=== PATIENT | male | born 1935 | race Caucasian/White ===

== ENCOUNTER → 2016-09-01 | Outpatient (CLI) | payer MEDICARE, OTHER ==
[~2016-09-01] MED LIST: ANTI1CAP PO; ASPI-496 PO; CELE200C PO; CITA20TA5 PO; CITA40TA12 PO; FERR325T20 PO; KRIL500C PO; LORA10CA PO; LORA5TAB4 PO; MULT-326 PO; NAPR500T PO; RABE20TA5 PO; SIMV40TA3 PO; TAMS0.4C2 PO; TEST1.25 TD; [UNRECOGNIZED DRUG - OTHER] PO
== END | disposition home or self-care (01) ==
LOC: CFH 12:33
PROVIDERS: ATTEND Internal Medicine Cardiovascular Disease
DX: I08.3 Combined rheumatic disorders of mitral, aortic and tricuspid valves (principal); J44.9 Chronic obstructive pulmonary disease, unspecified; E78.5 Hyperlipidemia, unspecified; Z95.5 Presence of coronary angioplasty implant and graft; Z99.81 Dependence on supplemental oxygen; Z85.46 Personal history of malignant neoplasm of prostate; Z87.891 Personal history of nicotine dependence
CPT/HCPCS: 93306

== ENCOUNTER 2017-01-24 14:24 | Emergency (ER) | payer MEDICARE, OTHER ==
[~2017-01-24] VITALS: Ht 175.3 cm; Wt 69.4 kg
[2017-01-24] MEDS ORDERED: MAALOX/HYOSCYAMINE/LIDOCAINE 45 ML BTL ONE (15:50)
[2017-01-24 15:53] LABS: HEMATOCRIT 39.7 % (39.2-51.8)
[2017-01-24] MEDS ORDERED: MAALOX/HYOSCYAMINE/LIDOCAINE 45 ML BTL PO ONE (16:00)
[2017-01-24] MEDS ORDERED: SODIUM CHLORIDE FLUSH 10ML SYR IVF ONE (16:00)
[2017-01-24 16:05] LABS: BLOOD UREA NITROGEN 18 mg/dL (7-18)
[2017-01-24 17:38] VITALS: BP 111/82
== END 2017-01-24 18:08 | disposition home or self-care (01) ==
LOC: ED 15:51
DX: M51.16 Intervertebral disc disorders with radiculopathy, lumbar region (principal); M43.06 Spondylolysis, lumbar region; M48.54XA Collapsed vertebra, not elsewhere classified, thoracic region, initial encounter for fracture; E78.5 Hyperlipidemia, unspecified; I10 Essential (primary) hypertension; I25.2 Old myocardial infarction; J44.9 Chronic obstructive pulmonary disease, unspecified; I25.10 Atherosclerotic heart disease of native coronary artery without angina pectoris; N40.0 Benign prostatic hyperplasia without lower urinary tract symptoms; K21.9 Gastro-esophageal reflux disease without esophagitis; Z87.891 Personal history of nicotine dependence; Z95.5 Presence of coronary angioplasty implant and graft
CPT/HCPCS: 36415; 72110; 80048; 82040; 85025; 93005; 99285

== ENCOUNTER → 2017-06-11 | Outpatient (CLI) | payer MEDICARE, OTHER ==
[~2017-06-11] MED LIST changes: +FERR325T18 PO; -FERR325T20 PO; +NAPR-856 PO; -NAPR500T PO; +RABE20TA18 PO; -RABE20TA5 PO
== END ==
LOC: RAD 09:13
PROVIDERS: ATTEND Surgery
DX: K21.9 Gastro-esophageal reflux disease without esophagitis (principal)
CPT/HCPCS: 74220

== ENCOUNTER 2017-07-01 10:48 | Inpatient (IN) | payer MEDICARE, OTHER ==
[~2017-07-01] VITALS: Ht 175.3 cm; Wt 76.4 kg
[~2017-07-01 10:48] MED LIST changes: +BUPIVACAINE/PF 0.5% ONE
[2017-07-01] MEDS ORDERED: LACTATED RINGERS 1,000 ML IV SCH (11:20)
[2017-07-01] MEDS ORDERED: CITA20TA5 PO (11:25)
[2017-07-01] MEDS ORDERED: OMEG-14 PO (11:25)
[2017-07-01] MEDS ORDERED: FERR325T18 PO (11:25)
[2017-07-01] MEDS ORDERED: RABE20TA26 PO (11:25)
[2017-07-01] MEDS ORDERED: TAMS0.4C2 PO (11:25)
[2017-07-01] MEDS ORDERED: ASPI-496 PO (11:25)
[2017-07-01] MEDS ORDERED: ANTI1CAP PO (11:25)
[2017-07-01] MEDS ORDERED: SIMV40TA3 PO (11:25)
[2017-07-01] MEDS ORDERED: MULT-6 PO (11:25)
[2017-07-01] MEDS ORDERED: GLUC500T11 PO (11:25)
[2017-07-01] MEDS ORDERED: CELE200C PO (11:25)
[2017-07-01 11:26] VITALS: BP 137/79
[2017-07-01] MEDS ORDERED: MEPERIDINE/PF 25MG/0.5ML IVPush PRN (11:30)
[2017-07-01] MEDS ORDERED: morphine SULFATE 10 MG/ML, 1ML IV PRN (11:30)
[2017-07-01] MEDS ORDERED: FENTANYL PF 100 MCG/2ML IV PRN (11:30)
[2017-07-01] MEDS ORDERED: EPHEDRINE 50 MG/ML, 1ML IVPush PRN (11:30)
[2017-07-01] MEDS ORDERED: ONDANSETRON 2MG/ML, 2ML IVPush PRN (11:30)
[2017-07-01] MEDS ORDERED: HYDROcodone/APAP 7.5-325MG/15ML UDC PO PRN (11:30)
[2017-07-01] MEDS ORDERED: METOCLOPRAMIDE 5 MG/ML, 2ML IV PRN (11:30)
[2017-07-01] MEDS ORDERED: KETOROLAC 30 MG/1 ML IV PRN (11:30)
[2017-07-01] MEDS ORDERED: OXYcodone 5 MG/5 ML ORAL.SOL UDC PO PRN ×2 (11:30→18:30)
[2017-07-01] MEDS ORDERED: ALBUTEROL SULFATE 2.5 MG/3 ML NPPB PRN (11:30)
[2017-07-01] MEDS ORDERED: ACETAMINOPHEN 325 MG TABLET PO PRN ×2 (11:30→18:30)
[2017-07-01] MEDS ORDERED: HYDROmorphone 1 MG/ML, 1ML IV PRN ×2 (11:30→18:30)
[2017-07-01] MEDS ORDERED: MIDAZOLAM 1 MG/ML, 2ML IV PRN (11:30)
[2017-07-01] MEDS ORDERED: LABETALOL 5MG/ML, 20ML IV PRN (11:30)
[2017-07-01] MEDS ORDERED: DEXAMETHASONE 4 MG/ML, 1ML ONE ×2 (11:47→12:06)
[2017-07-01] MEDS ORDERED: FENTANYL PF 250 MCG/5ML ONE (11:47)
[2017-07-01] MEDS ORDERED: PROPOFOL 10 MG/ML, 20ML ONE (11:47)
[2017-07-01] MEDS ORDERED: LIDOCAINE-MPF 2% ,5ML ONE (11:47)
[2017-07-01] MEDS ORDERED: MIDAZOLAM 1 MG/ML, 2ML ONE (11:47)
[2017-07-01] MEDS ORDERED: GLYCOPYRROLATE 0.2MG/1ML, 5ML ONE (11:47)
[2017-07-01] MEDS ORDERED: ROCURONIUM 10 MG/ML,10ML ONE (11:47)
[2017-07-01] MEDS ORDERED: LABETALOL 5MG/ML, 20ML ONE ×2 (11:48→12:06)
[2017-07-01] MEDS ORDERED: ONDANSETRON 2MG/ML, 2ML ONE ×2 (12:06→16:20)
[2017-07-01] MEDS ORDERED: CEFAZOLIN 1,000 MG ONE (12:06)
[2017-07-01] MEDS ORDERED: BUPIVACAINE/PF-EPI 0.5% 1:200K IM ONE (12:54)
[2017-07-01] MEDS ORDERED: METOCLOPRAMIDE 5 MG/ML, 2ML ONE (16:38)
[2017-07-01] MEDS ORDERED: FENTANYL PF 100 MCG/2ML ONE (16:38)
[2017-07-01 18:00] VITALS: BP 136/86
[2017-07-01 18:29] VITALS: BP 134/88
[2017-07-01] MEDS ORDERED: SODIUM CHLORIDE 0.9% 1,000 ML IV SCH (18:30)
[2017-07-01] MEDS ORDERED: HYDROmorphone 2 MG/ML, 1ML ONE ×2 (19:48→23:57)
[2017-07-01] MEDS: HYDROmorphone 1 MG/ML, 1ML IV PRN ×2 (19:55→23:59)
[2017-07-01] MEDS: SODIUM CHLORIDE 0.9% 1,000 ML IV SCH (20:00)
[2017-07-01 20:15] VITALS: BP 133/79
[2017-07-02] VITALS: BP 101/69
[2017-07-02 04:36] VITALS: BP 109/84
[2017-07-02] MEDS ORDERED: HYDROmorphone 2 MG/ML, 1ML ONE (04:43)
[2017-07-02] MEDS: HYDROmorphone 1 MG/ML, 1ML IV PRN (04:46)
[2017-07-02 05:11] LABS: BASOPHILS % (AUTO) 0 % (0-1); EOSINOPHILS % (AUTO) 0 % (1-7); LYMPHOCYTES % (AUTO) 7 % (22-44); MD NO; MEAN CORPUSCULAR HEMOGLOBIN 30.1 pg (27.5-34.5); MEAN CORPUSCULAR HGB CONC 32.9 g/dL (33.2-36.2); MEAN CORPUSCULAR VOLUME 91.4 fL (81-97); MONOCYTES # (AUTO) 0.64 x10^3/uL (0.2-0.8); MONOCYTES % (AUTO) 5 % (2-9); NEUTROPHILS # (AUTO) 11.37 x10^3/uL (1.8-6.8); NEUTROPHILS % (AUTO) 88 % (42-75); PLATELET COUNT 238 x10^3/uL (130-400); RED BLOOD COUNT 3.82 x10^6/uL (4.38-5.82); RED CELL DISTRIBUTION WIDTH 15.8 % (9.4-14.8)
[2017-07-02] MEDS: TAMSULOSIN 0.4 MG CAP.ER.24H PO SCH ×2 (07:28→20:49)
[2017-07-02 07:38] VITALS: BP 104/66
[2017-07-02] MEDS ORDERED: TAMSULOSIN 0.4 MG CAP.ER.24H PO SCH (09:00)
[2017-07-02] MEDS: SODIUM CHLORIDE 0.9% 1,000 ML IV SCH ×2 (09:07→20:06)
[2017-07-02] MEDS ORDERED: OMNIPAQUE 350 MG/ML, 150 ML BOTTLE ONE (13:04)
[2017-07-02 13:38] VITALS: BP 120/80
[2017-07-02 18:31] VITALS: BP 102/75
[2017-07-02 18:35] LABS: BASOPHILS % (AUTO) 0 % (0-1); EOSINOPHILS % (AUTO) 0 % (1-7); LYMPHOCYTES # (AUTO) 0.77 x10^3/uL (1-3.4); LYMPHOCYTES % (AUTO) 7 % (22-44); MD NO; MEAN CORPUSCULAR HEMOGLOBIN 30.4 pg (27.5-34.5); MEAN CORPUSCULAR HGB CONC 33.2 g/dL (33.2-36.2); MEAN CORPUSCULAR VOLUME 91.5 fL (81-97); MONOCYTES # (AUTO) 0.68 x10^3/uL (0.2-0.8); MONOCYTES % (AUTO) 6 % (2-9); NEUTROPHILS # (AUTO) 9.94 x10^3/uL (1.8-6.8); NEUTROPHILS % (AUTO) 87 % (42-75); PLATELET COUNT 243 x10^3/uL (130-400); RED BLOOD COUNT 3.56 x10^6/uL (4.38-5.82); RED CELL DISTRIBUTION WIDTH 16.1 % (9.4-14.8)
[2017-07-02 18:46] LABS: ALANINE AMINOTRANSFERASE 78 U/L (12-78); ALBUMIN 2.7 g/dL (3.4-5.0); ANION GAP 9 mmol/L (5-15); CALCIUM 8.1 mg/dL (8.5-10.1); CHLORIDE 108 mmol/L (98-107); CREATININE 1.73 mg/dL (0.7-1.3)
[2017-07-02 18:49] LABS: ALKALINE PHOSPHATASE 70 U/L (45-117); BILIRUBIN,TOTAL 0.5 mg/dL (0.2-1.0); TOTAL PROTEIN 6.8 g/dL (6.4-8.2)
[2017-07-02] MEDS: ACETAMINOPHEN 325 MG TABLET PO PRN (20:49)
[2017-07-02] MEDS: OXYcodone 5 MG/5 ML ORAL.SOL UDC PO PRN (22:39)
[2017-07-03 00:01] VITALS: BP 137/89
[2017-07-03] MEDS: SODIUM CHLORIDE 0.9% 1,000 ML IV SCH ×2 (05:34→17:41)
[2017-07-03 08:55] VITALS: BP 124/84
[2017-07-03] MEDS ORDERED: SODIUM CHLORIDE 0.9% 1,000ML IVBOLUS ONE (09:00)
[2017-07-03] MEDS ORDERED: ONDANSETRON 2MG/ML, 2ML ONE (09:11)
[2017-07-03] MEDS ORDERED: ONDANSETRON ODT 4 MG ONE (09:14)
[2017-07-03] MEDS: ONDANSETRON ODT 4 MG PO PRN ×2 (09:15→20:37)
[2017-07-03] MEDS: FAMOTIDINE 20 MG/2 ML IVPush SCH (10:01)
[2017-07-03] MEDS: OXYcodone 5 MG/5 ML ORAL.SOL UDC PO PRN ×2 (10:01→17:43)
[2017-07-03] MEDS ORDERED: HYDROmorphone 2 MG/ML, 1ML ONE (10:36)
[2017-07-03] MEDS: HYDROmorphone 1 MG/ML, 1ML IV PRN (10:38)
[2017-07-03 13:55] VITALS: BP 140/87
[2017-07-03 19:02] VITALS: BP 106/69
[2017-07-03] MEDS: TAMSULOSIN 0.4 MG CAP.ER.24H PO SCH (20:37)
[2017-07-04 00:08] VITALS: BP 133/78
[2017-07-04] MEDS: ACETAMINOPHEN 325 MG TABLET PO PRN (00:14)
[2017-07-04] MEDS: SODIUM CHLORIDE 0.9% 1,000 ML IV SCH ×2 (00:17→07:01)
[2017-07-04] MEDS: ONDANSETRON ODT 4 MG PO PRN ×3 (00:55→09:56)
[2017-07-04] MEDS: OXYcodone 5 MG/5 ML ORAL.SOL UDC PO PRN ×4 (00:56→17:20)
[2017-07-04 05:55] VITALS: BP 130/77
[2017-07-04 07:10] VITALS: BP 116/70
[2017-07-04 07:48] LABS: CALCIUM 7.4 mg/dL (8.5-10.1); CREATININE 1.02 mg/dL (0.7-1.3)
[2017-07-04 07:59] LABS: MEAN CORPUSCULAR HEMOGLOBIN 30.4 pg (27.5-34.5); MEAN CORPUSCULAR HGB CONC 33.4 g/dL (33.2-36.2); MEAN CORPUSCULAR VOLUME 91.1 fL (81-97); MEAN PLATELET VOLUME 8.5 fL (7.4-10.4); PLATELET COUNT 151 x10^3/uL (130-400); RED CELL DISTRIBUTION WIDTH 15.9 % (9.4-14.8)
[2017-07-04 08:04] LABS: ANION GAP 4 mmol/L (5-15); CHLORIDE 113 mmol/L (98-107)
[2017-07-04 08:37] LABS: MD YES
[2017-07-04 08:39] LABS: LYMPH#(MANUAL) 0.17 x10^3/uL (1-3.4); LYMPHS% (MANUAL) 2 % (22-44); MONOS#(MANUAL) 0.25 x10^3/uL (0.3-2.7); MONOS% (MANUAL) 3 % (2-9); SEG#(MANUAL) 7.22 x10^3/uL (1.8-6.8)
[2017-07-04 08:40] LABS: <PLATELET ESTIMATE> ADEQUATE; <PLT MORPHOLOGY> NORMAL PLT MORPH; ANISOCYTOSIS 1+; BAND#(MANUAL) 0.66 x10^3/uL; BANDS%(MANUAL) 8 % (0-7); SEGS% (MANUAL) 87 % (42-75)
[2017-07-04] MEDS: TAMSULOSIN 0.4 MG CAP.ER.24H PO SCH ×2 (08:46→09:56)
[2017-07-04] MEDS: FAMOTIDINE 20 MG/2 ML IVPush SCH (08:48)
[2017-07-04] MEDS ORDERED: HYDROmorphone 2 MG/ML, 1ML ONE (13:00)
[2017-07-04] MEDS: HYDROmorphone 1 MG/ML, 1ML IV PRN (13:01)
[2017-07-04 13:19] VITALS: BP 142/82
[2017-07-04 18:57] VITALS: BP 135/74
[2017-07-04] MEDS ORDERED: SODIUM CHLORIDE 0.9% 1,000 ML IV SCH (20:00)
[2017-07-04] MEDS ORDERED: FENTANYL PF 250 MCG/5ML ONE (21:09)
[2017-07-04] MEDS ORDERED: ETOMIDATE 20 MG/10 ML ONE (21:11)
[2017-07-04] MEDS ORDERED: SUCCINYLCHOLINE 20 MG/ML, 10ML ONE (21:12)
[2017-07-04] MEDS ORDERED: ROCURONIUM 10 MG/ML,10ML ONE ×3 (21:12→22:42)
[2017-07-04] MEDS ORDERED: NEOSTIGMINE 1 MG/ML, 10ML ONE (21:13)
[2017-07-04] MEDS ORDERED: GLYCOPYRROLATE 0.4 MG/2 ML, 2ML ONE (21:13)
[2017-07-04] MEDS ORDERED: CEFAZOLIN 1,000 MG ONE ×2 (21:14)
[2017-07-04] MEDS ORDERED: SODIUM CHLORIDE 0.9% PF 10ML ONE (21:14)
[2017-07-04] MEDS ORDERED: PHENYLEPHRINE 10 MG/ML ONE (21:25)
[2017-07-04] MEDS ORDERED: CEFOTETAN PMX 2GM/50ML 50 ML ONE (22:26)
[2017-07-04] MEDS ORDERED: LIDOCAINE-MPF 1%, 2ML ENDO PRN (22:30)
[2017-07-04] MEDS ORDERED: PHARMACY MAY ADJ FOR RENAL FX MC SCH (22:30)
[2017-07-04] MEDS ORDERED: MIDAZOLAM 1 MG/ML, 2ML ONE (23:03)
[2017-07-05] MEDS ORDERED: ACETAMINOPHEN 650 MG SUPP ONE (02:14)
[2017-07-05] MEDS: HYDROmorphone 1 MG/ML, 1ML IV PRN (02:37)
[2017-07-05] MEDS: ACETAMINOPHEN 650 MG SUPP PR PRN ×2 (02:40→08:20)
[2017-07-05 03:56] LABS: MEAN CORPUSCULAR HEMOGLOBIN 31.2 pg (27.5-34.5); MEAN CORPUSCULAR HGB CONC 34.1 g/dL (33.2-36.2); MEAN CORPUSCULAR VOLUME 91.5 fL (81-97); MEAN PLATELET VOLUME 8.8 fL (7.4-10.4); PLATELET COUNT 218 x10^3/uL (130-400); RED BLOOD COUNT 3.62 x10^6/uL (4.38-5.82); RED CELL DISTRIBUTION WIDTH 15.2 % (9.4-14.8)
[2017-07-05 04:00] VITALS: BP 68/42
[2017-07-05 04:00] LABS: ANION GAP 8 mmol/L (5-15); CHLORIDE 118 mmol/L (98-107); CREATININE 1.59 mg/dL (0.7-1.3)
[2017-07-05 04:51] LABS: MD YES
[2017-07-05] MEDS ORDERED: LIDOCAINE 2%, 2ML ONE (04:51)
[2017-07-05 04:56] LABS: BANDS%(MANUAL) 52 % (0-7); LYMPH#(MANUAL) 0.28 x10^3/uL (1-3.4); LYMPHS% (MANUAL) 11 % (22-44); METAMYELOCYTES# (MANUAL) 0.05 x10^3/uL (0-0); METAMYELOCYTES% (MANUAL) 2 % (0-1); MONOS#(MANUAL) 0.13 x10^3/uL (0.3-2.7); MONOS% (MANUAL) 5 % (2-9); NRBC % (MANUAL) 1 % (0-1); SEG#(MANUAL) 0.75 x10^3/uL (1.8-6.8); SEGS% (MANUAL) 30 % (42-75)
[2017-07-05 04:57] LABS: <PLATELET ESTIMATE> ADEQUATE; <PLT MORPHOLOGY> NORMAL PLT MORPH; ANISOCYTOSIS 1+
[2017-07-05 05:17] LABS: TROPONIN I 0.312 ng/mL (0.000-0.045)
[2017-07-05] MEDS ORDERED: SODIUM CHLORIDE 0.9% 1,000ML IVBOLUS ONE ×2 (05:30)
[2017-07-05] MEDS: NOREPINEPHRINE 8 MG in SODIUM CHLORIDE 0.9% 242 ML IV PRN ×2 (05:31→20:24)
[2017-07-05] MEDS ORDERED: AMPICILLIN/SULBACTAM 1,500 MG in SODIUM CHLORIDE 0.9% 50 ML IV SCH (07:00)
[2017-07-05] MEDS ORDERED: AMPICILLIN/SULBACTAM 3 GM in SODIUM CHLORIDE 0.9% 100 ML IV SCH (07:00)
[2017-07-05] MEDS ORDERED: PIPERACILLIN/TAZO/PMX 3.375GM 50 ML IV SCH (07:30)
[2017-07-05] MEDS ORDERED: PHARMACY MAY ADJ FOR RENAL FX MC PRN (07:30)
[2017-07-05] MEDS ORDERED: ALBUTEROL/IPRATROPIUM 2.5MG/0.5MG, 3 ML NPPB PRN (07:30)
[2017-07-05] MEDS: TAMSULOSIN 0.4 MG CAP.ER.24H PO SCH (08:46)
[2017-07-05 09:09] LABS: TROPONIN I 0.731 ng/mL (0.000-0.045)
[2017-07-05] MEDS: FAMOTIDINE 20 MG/2 ML IVPush SCH (09:09)
[2017-07-05] MEDS: VASOPRESSIN 100 UNIT in SODIUM CHLORIDE 0.9% 495 ML IV PRN ×2 (09:10→09:12)
[2017-07-05] MEDS: FLUCONAZOLE 200 MG/100 ML 100 ML IV SCH (09:11)
[2017-07-05] MEDS: FENTANYL PF 100 MCG/2ML IVPush PRN (09:45)
[2017-07-05] MEDS: HEPARIN 5,000 UNITS/ML, 1ML SQ SCH ×2 (11:38→21:03)
[2017-07-05] MEDS: MEROPENEM 1 GM in SODIUM CHLORIDE 0.9% 100 ML IV SCH ×2 (11:38→23:12)
[2017-07-05] MEDS: PROPOFOL 100 ML IV PRN (13:41)
[2017-07-05] MEDS ORDERED: SODIUM CHLORIDE 0.9%, 500ML IVBOLUS ONE (15:30)
[2017-07-05 15:52] LABS: TROPONIN I 0.782 ng/mL (0.000-0.045)
[2017-07-05] MEDS ORDERED: AMIODARONE 150 MG in DEXTROSE 5% 100 ML IV ONE (16:00)
[2017-07-05] MEDS: AMIODARONE 900 MG in DEXTROSE 5% 482 ML IV PRN (16:11)
[2017-07-05] MEDS: FILTER 0.22 MICRON FOR AMIODARONE IV PRN (16:14)
[2017-07-05] MEDS: SODIUM CHLORIDE 0.9% 1,000 ML IV SCH (17:20)
[2017-07-05] MEDS ORDERED: SODIUM CHLORIDE 0.9% 1,000 ML IV SCH (20:00)
[2017-07-06] MEDS: PROPOFOL 100 ML IV PRN ×2 (00:18→14:48)
[2017-07-06] MEDS: FENTANYL PF 100 MCG/2ML IVPush PRN ×3 (01:10→19:24)
[2017-07-06 04:00] VITALS: BP 110/60
[2017-07-06] MEDS: SODIUM CHLORIDE 0.9% 1,000 ML IV SCH ×2 (04:11→14:48)
[2017-07-06] MEDS: HEPARIN 5,000 UNITS/ML, 1ML SQ SCH ×3 (04:12→19:23)
[2017-07-06 05:13] LABS: MEAN CORPUSCULAR HEMOGLOBIN 30.4 pg (27.5-34.5); MEAN CORPUSCULAR HGB CONC 33.6 g/dL (33.2-36.2); MEAN CORPUSCULAR VOLUME 90.6 fL (81-97); MEAN PLATELET VOLUME 8.9 fL (7.4-10.4); PLATELET COUNT 216 x10^3/uL (130-400); RED BLOOD COUNT 3.55 x10^6/uL (4.38-5.82); RED CELL DISTRIBUTION WIDTH 15.6 % (9.4-14.8)
[2017-07-06 05:14] LABS: ANION GAP 9 mmol/L (5-15); CALCIUM 6.8 mg/dL (8.5-10.1); CHLORIDE 118 mmol/L (98-107); CREATININE 1.42 mg/dL (0.7-1.3)
[2017-07-06 05:41] LABS: MD YES
[2017-07-06 05:43] LABS: BAND#(MANUAL) 3.07 x10^3/uL; BANDS%(MANUAL) 29 % (0-7); LYMPH#(MANUAL) 0.53 x10^3/uL (1-3.4); LYMPHS% (MANUAL) 5 % (22-44); METAMYELOCYTES# (MANUAL) 0.21 x10^3/uL (0-0); METAMYELOCYTES% (MANUAL) 2 % (0-1); MONOS#(MANUAL) 0.11 x10^3/uL (0.3-2.7); MONOS% (MANUAL) 1 % (2-9); SEG#(MANUAL) 6.68 x10^3/uL (1.8-6.8); SEGS% (MANUAL) 63 % (42-75)
[2017-07-06 05:44] LABS: <PLATELET ESTIMATE> ADEQUATE; <PLT MORPHOLOGY> NORMAL PLT MORPH; ANISOCYTOSIS 1+; TOXIC GRAN 1+
[2017-07-06] MEDS: TAMSULOSIN 0.4 MG CAP.ER.24H PO SCH (07:37)
[2017-07-06] MEDS: FLUCONAZOLE 200 MG/100 ML 100 ML IV SCH (07:38)
[2017-07-06] MEDS: PANTOPRAZOLE 40 MG IV IVPush SCH (08:11)
[2017-07-06] MEDS: MEROPENEM 1 GM in SODIUM CHLORIDE 0.9% 100 ML IV SCH ×2 (10:54→22:57)
[2017-07-06] MEDS: AMIODARONE 900 MG in DEXTROSE 5% 482 ML IV PRN (14:48)
[2017-07-06] MEDS: FILTER 0.22 MICRON FOR AMIODARONE IV PRN (14:48)
[2017-07-07] MEDS: SODIUM CHLORIDE 0.9% 1,000 ML IV SCH ×3 (01:20→22:27)
[2017-07-07 04:00] VITALS: BP 131/69
[2017-07-07] MEDS: HEPARIN 5,000 UNITS/ML, 1ML SQ SCH ×3 (04:28→20:55)
[2017-07-07 06:56] LABS: ANION GAP 6 mmol/L (5-15); CHLORIDE 118 mmol/L (98-107); CREATININE 1.17 mg/dL (0.7-1.3); MEAN CORPUSCULAR HEMOGLOBIN 29.9 pg (27.5-34.5); MEAN CORPUSCULAR HGB CONC 32.9 g/dL (33.2-36.2); PLATELET COUNT 223 x10^3/uL (130-400); RED BLOOD COUNT 3.07 x10^6/uL (4.38-5.82); RED CELL DISTRIBUTION WIDTH 15.7 % (9.4-14.8); TRIGLYCERIDES 263 mg/dL (50-200)
[2017-07-07 07:29] LABS: MD YES
[2017-07-07 07:33] LABS: <PLATELET ESTIMATE> ADEQUATE; <PLT MORPHOLOGY> NORMAL PLT MORPH; ANISOCYTOSIS 1+; BAND#(MANUAL) 2.07 x10^3/uL; BANDS%(MANUAL) 19 % (0-7); LYMPH#(MANUAL) 0.22 x10^3/uL (1-3.4); LYMPHS% (MANUAL) 2 % (22-44); METAMYELOCYTES# (MANUAL) 0.33 x10^3/uL (0-0); METAMYELOCYTES% (MANUAL) 3 % (0-1); REACTIVE LYMPHS # (MANUAL) 0.11 x10^3/uL (0-0); REACTIVE LYMPHS % (MANUAL) 1 % (0-0); SEG#(MANUAL) 8.18 x10^3/uL (1.8-6.8); SEGS% (MANUAL) 75 % (42-75); TOXIC GRAN 1+
[2017-07-07 07:34] LABS: POLYCHROMASIA 1+
[2017-07-07] MEDS: PANTOPRAZOLE 40 MG IV IVPush SCH (08:55)
[2017-07-07] MEDS: FLUCONAZOLE 200 MG/100 ML 100 ML IV SCH (08:55)
[2017-07-07] MEDS: FENTANYL PF 100 MCG/2ML IVPush PRN ×2 (08:55→11:32)
[2017-07-07] MEDS: TAMSULOSIN 0.4 MG CAP.ER.24H PO SCH (08:56)
[2017-07-07] MEDS: MEROPENEM 1 GM in SODIUM CHLORIDE 0.9% 100 ML IV SCH ×2 (10:58→22:57)
[2017-07-07] MEDS: PROPOFOL 100 ML IV PRN (16:03)
[2017-07-07] MEDS: AMIODARONE 900 MG in DEXTROSE 5% 482 ML IV PRN (23:19)
[2017-07-08 04:00] VITALS: BP 122/60
[2017-07-08] MEDS: PROPOFOL 100 ML IV PRN ×2 (04:03→21:05)
[2017-07-08] MEDS: HEPARIN 5,000 UNITS/ML, 1ML SQ SCH ×3 (04:11→21:04)
[2017-07-08 05:01] LABS: MEAN CORPUSCULAR HEMOGLOBIN 30.1 pg (27.5-34.5); MEAN CORPUSCULAR HGB CONC 33.3 g/dL (33.2-36.2); MEAN CORPUSCULAR VOLUME 90.4 fL (81-97); MEAN PLATELET VOLUME 8.4 fL (7.4-10.4); PLATELET COUNT 219 x10^3/uL (130-400); RED BLOOD COUNT 2.81 x10^6/uL (4.38-5.82)
[2017-07-08 05:11] LABS: ANION GAP 9 mmol/L (5-15); CALCIUM 6.9 mg/dL (8.5-10.1); CHLORIDE 121 mmol/L (98-107); CREATININE 0.87 mg/dL (0.7-1.3)
[2017-07-08 05:36] LABS: MD YES
[2017-07-08 05:39] LABS: BAND#(MANUAL) 0.59 x10^3/uL; BANDS%(MANUAL) 5 % (0-7); LYMPH#(MANUAL) 0.47 x10^3/uL (1-3.4); LYMPHS% (MANUAL) 4 % (22-44); MONOS#(MANUAL) 0.59 x10^3/uL (0.3-2.7); MONOS% (MANUAL) 5 % (2-9); MYELOCYTES# (MANUAL) 0.35 x10^3/uL (0-0); MYELOCYTES% (MANUAL) 3 % (0-0); NRBC % (MANUAL) 1 % (0-1); SEG#(MANUAL) 9.79 x10^3/uL (1.8-6.8); SEGS% (MANUAL) 83 % (42-75)
[2017-07-08 05:40] LABS: ANISOCYTOSIS 1+; POLYCHROMASIA 1+
[2017-07-08 05:41] LABS: <PLATELET ESTIMATE> ADEQUATE; <PLT MORPHOLOGY> NORMAL PLT MORPH
[2017-07-08] MEDS: FLUCONAZOLE 200 MG/100 ML 100 ML IV SCH (07:30)
[2017-07-08] MEDS: PANTOPRAZOLE 40 MG IV IVPush SCH (08:09)
[2017-07-08] MEDS: TAMSULOSIN 0.4 MG CAP.ER.24H PO SCH (08:09)
[2017-07-08] MEDS: FENTANYL PF 100 MCG/2ML IVPush PRN ×3 (08:09→21:05)
[2017-07-08] MEDS: MICAFUNGIN 100 MG in SODIUM CHLORIDE 0.9% 100 ML IV SCH (08:09)
[2017-07-08] MEDS: SODIUM CHLORIDE 0.9% 1,000 ML IV SCH (08:10)
[2017-07-08] MEDS: MEROPENEM 1 GM in SODIUM CHLORIDE 0.9% 100 ML IV SCH (12:10)
[2017-07-08] MEDS: FUROSEMIDE 20 MG/2 ML IV SCH ×2 (12:18→21:05)
[2017-07-08] MEDS: SODIUM CHLORIDE 0.45% 1,000 ML IV PRN (17:59)
[2017-07-09] MEDS: MEROPENEM 1 GM in SODIUM CHLORIDE 0.9% 100 ML IV SCH ×3 (00:07→23:06)
[2017-07-09 05:35] LABS: CHLORIDE 118 mmol/L (98-107)
[2017-07-09 05:42] LABS: MEAN CORPUSCULAR HEMOGLOBIN 30.2 pg (27.5-34.5); MEAN CORPUSCULAR HGB CONC 33.6 g/dL (33.2-36.2); MEAN CORPUSCULAR VOLUME 89.9 fL (81-97); MEAN PLATELET VOLUME 8.6 fL (7.4-10.4); PLATELET COUNT 260 x10^3/uL (130-400); RED BLOOD COUNT 3.22 x10^6/uL (4.38-5.82)
[2017-07-09] MEDS: PROPOFOL 100 ML IV PRN ×2 (05:42→22:15)
[2017-07-09] MEDS: HEPARIN 5,000 UNITS/ML, 1ML SQ SCH ×3 (05:42→19:41)
[2017-07-09 05:45] LABS: ANION GAP 12 mmol/L (5-15); CALCIUM 7.5 mg/dL (8.5-10.1); CREATININE 0.92 mg/dL (0.7-1.3)
[2017-07-09 06:19] LABS: BASOPHILS % (AUTO) 0 % (0-1); EOSINOPHILS % (AUTO) 0 % (1-7); LYMPHOCYTES # (AUTO) 0.48 x10^3/uL (1-3.4); LYMPHOCYTES % (AUTO) 3 % (22-44); MD SCAN; MONOCYTES # (AUTO) 0.36 x10^3/uL (0.2-0.8); MONOCYTES % (AUTO) 2 % (2-9); NEUTROPHILS # (AUTO) 15.17 x10^3/uL (1.8-6.8); NEUTROPHILS % (AUTO) 95 % (42-75)
[2017-07-09] MEDS: MICAFUNGIN 100 MG in SODIUM CHLORIDE 0.9% 100 ML IV SCH (07:46)
[2017-07-09] MEDS: FUROSEMIDE 20 MG/2 ML IV SCH ×2 (08:46→21:01)
[2017-07-09] MEDS: PANTOPRAZOLE 40 MG IV IVPush SCH (08:47)
[2017-07-09] MEDS: METOCLOPRAMIDE 5 MG/ML, 2ML IV SCH ×3 (08:47→19:41)
[2017-07-09] MEDS: TAMSULOSIN 0.4 MG CAP.ER.24H PO SCH (08:47)
[2017-07-09] MEDS ORDERED: OMNIPAQUE 350 MG/ML, 50 ML BOTTLE ONE (12:41)
[2017-07-09] MEDS: FENTANYL PF 100 MCG/2ML IVPush PRN ×2 (12:44→18:18)
[2017-07-09] MEDS: SODIUM CHLORIDE 0.45% 1,000 ML IV PRN (22:14)
[2017-07-10] MEDS: FENTANYL PF 100 MCG/2ML IVPush PRN ×6 (00:18→23:52)
[2017-07-10] MEDS: METOCLOPRAMIDE 5 MG/ML, 2ML IV SCH ×4 (01:08→20:01)
[2017-07-10] MEDS: HEPARIN 5,000 UNITS/ML, 1ML SQ SCH ×3 (04:09→20:50)
[2017-07-10 04:23] LABS: MEAN CORPUSCULAR HEMOGLOBIN 29.5 pg (27.5-34.5); MEAN CORPUSCULAR HGB CONC 33.1 g/dL (33.2-36.2); MEAN CORPUSCULAR VOLUME 89.1 fL (81-97); MEAN PLATELET VOLUME 8.5 fL (7.4-10.4); PLATELET COUNT 286 x10^3/uL (130-400); RED CELL DISTRIBUTION WIDTH 15.4 % (9.4-14.8)
[2017-07-10 04:35] LABS: ANION GAP 10 mmol/L (5-15); CALCIUM 7.1 mg/dL (8.5-10.1); CHLORIDE 118 mmol/L (98-107); MD YES
[2017-07-10 04:36] LABS: TRIGLYCERIDES 262 mg/dL (50-200)
[2017-07-10 04:37] LABS: <PLATELET ESTIMATE> ADEQUATE; <PLT MORPHOLOGY> NORMAL PLT MORPH; ANISOCYTOSIS 1+; BAND#(MANUAL) 0.57 x10^3/uL; BANDS%(MANUAL) 4 % (0-7); EOS#(MANUAL) 0.14 x10^3/uL (0.0-0.4); EOS% (MANUAL) 1 % (1-7); LYMPH#(MANUAL) 0.29 x10^3/uL (1-3.4); LYMPHS% (MANUAL) 2 % (22-44); MONOS#(MANUAL) 0.29 x10^3/uL (0.3-2.7); MONOS% (MANUAL) 2 % (2-9); MYELOCYTES# (MANUAL) 0.14 x10^3/uL (0-0); MYELOCYTES% (MANUAL) 1 % (0-0); POLYCHROMASIA 1+; SEG#(MANUAL) 12.87 x10^3/uL (1.8-6.8); SEGS% (MANUAL) 90 % (42-75)
[2017-07-10] MEDS: PROPOFOL 100 ML IV PRN (05:33)
[2017-07-10] MEDS: MICAFUNGIN 100 MG in SODIUM CHLORIDE 0.9% 100 ML IV SCH (07:39)
[2017-07-10] MEDS: TAMSULOSIN 0.4 MG CAP.ER.24H PO SCH (09:34)
[2017-07-10] MEDS: FUROSEMIDE 20 MG/2 ML IV SCH ×2 (09:34→20:50)
[2017-07-10] MEDS: PANTOPRAZOLE 40 MG IV IVPush SCH (09:34)
[2017-07-10] MEDS: MEROPENEM 1 GM in SODIUM CHLORIDE 0.9% 100 ML IV SCH ×2 (11:31→23:10)
[2017-07-10] MEDS ORDERED: BISACODYL 10 MG SUPP PR PRN (14:00)
[2017-07-10] MEDS ORDERED: BISACODYL 10 MG SUPP ONE (14:05)
[2017-07-11] MEDS: METOCLOPRAMIDE 5 MG/ML, 2ML IV SCH ×4 (01:06→19:37)
[2017-07-11] MEDS: HEPARIN 5,000 UNITS/ML, 1ML SQ SCH ×3 (04:31→19:37)
[2017-07-11 04:34] LABS: MEAN CORPUSCULAR HEMOGLOBIN 30.5 pg (27.5-34.5); MEAN CORPUSCULAR HGB CONC 33.7 g/dL (33.2-36.2); MEAN CORPUSCULAR VOLUME 90.6 fL (81-97); MEAN PLATELET VOLUME 8.7 fL (7.4-10.4); PLATELET COUNT 310 x10^3/uL (130-400); RED BLOOD COUNT 3.01 x10^6/uL (4.38-5.82); RED CELL DISTRIBUTION WIDTH 15.9 % (9.4-14.8)
[2017-07-11 04:38] LABS: ANION GAP 6 mmol/L (5-15); CALCIUM 7.5 mg/dL (8.5-10.1); CHLORIDE 116 mmol/L (98-107)
[2017-07-11 04:39] LABS: CREATININE 0.69 mg/dL (0.7-1.3)
[2017-07-11 05:00] LABS: MD YES
[2017-07-11 05:09] LABS: ANISOCYTOSIS 1+; BAND#(MANUAL) 0.28 x10^3/uL; BANDS%(MANUAL) 2 % (0-7); LYMPH#(MANUAL) 0.28 x10^3/uL (1-3.4); LYMPHS% (MANUAL) 2 % (22-44); MONOS#(MANUAL) 0.42 x10^3/uL (0.3-2.7); MONOS% (MANUAL) 3 % (2-9); POLYCHROMASIA 1+; REACTIVE LYMPHS # (MANUAL) 0.28 x10^3/uL (0-0); REACTIVE LYMPHS % (MANUAL) 2 % (0-0); SEG#(MANUAL) 12.83 x10^3/uL (1.8-6.8); SEGS% (MANUAL) 91 % (42-75)
[2017-07-11 05:10] LABS: <PLATELET ESTIMATE> ADEQUATE; LARGE PLATELETS 1+; OVALOCYTES 1+
[2017-07-11] MEDS: FENTANYL PF 100 MCG/2ML IVPush PRN ×5 (06:31→23:28)
[2017-07-11] MEDS: MICAFUNGIN 100 MG in SODIUM CHLORIDE 0.9% 100 ML IV SCH (08:18)
[2017-07-11] MEDS: PANTOPRAZOLE 40 MG IV IVPush SCH (08:48)
[2017-07-11] MEDS: TAMSULOSIN 0.4 MG CAP.ER.24H PO SCH (08:48)
[2017-07-11] MEDS: FUROSEMIDE 20 MG/2 ML IV SCH ×2 (08:48→16:51)
[2017-07-11] MEDS: BISACODYL 10 MG SUPP PR SCH (09:00)
[2017-07-11] MEDS: MEROPENEM 1 GM in SODIUM CHLORIDE 0.9% 100 ML IV SCH ×2 (11:13→22:44)
[2017-07-11] MEDS ORDERED: MAGNESIUM HYDROXIDE 8%, 30ML UDC NG ONE (13:30)
[2017-07-11] MEDS: ACETAMINOPHEN 325 MG TABLET PO PRN (18:24)
[2017-07-12] MEDS: METOCLOPRAMIDE 5 MG/ML, 2ML IV SCH ×4 (00:48→18:25)
[2017-07-12] MEDS: FUROSEMIDE 20 MG/2 ML IV SCH ×3 (00:48→17:27)
[2017-07-12] MEDS: FENTANYL PF 100 MCG/2ML IVPush PRN ×7 (02:41→20:58)
[2017-07-12] MEDS: HEPARIN 5,000 UNITS/ML, 1ML SQ SCH ×3 (03:48→20:48)
[2017-07-12 04:25] LABS: MEAN CORPUSCULAR HEMOGLOBIN 29.7 pg (27.5-34.5); MEAN CORPUSCULAR HGB CONC 32.9 g/dL (33.2-36.2); MEAN CORPUSCULAR VOLUME 90.1 fL (81-97); PLATELET COUNT 341 x10^3/uL (130-400); RED BLOOD COUNT 3.05 x10^6/uL (4.38-5.82); RED CELL DISTRIBUTION WIDTH 15.9 % (9.4-14.8)
[2017-07-12] MEDS: ACETAMINOPHEN 325 MG TABLET PO PRN ×3 (04:35→20:47)
[2017-07-12 04:37] LABS: ANION GAP 4 mmol/L (5-15); CALCIUM 7.4 mg/dL (8.5-10.1); CHLORIDE 113 mmol/L (98-107); CREATININE 0.82 mg/dL (0.7-1.3)
[2017-07-12 05:36] LABS: BASOPHILS # (AUTO) 0.01 x10^3/uL (0-0.1); BASOPHILS % (AUTO) 0 % (0-1); EOSINOPHILS # (AUTO) 0.05 x10^3/uL (0-0.4); EOSINOPHILS % (AUTO) 0 % (1-7); LYMPHOCYTES # (AUTO) 0.41 x10^3/uL (1-3.4); LYMPHOCYTES % (AUTO) 3 % (22-44); MD SCAN; MONOCYTES # (AUTO) 0.14 x10^3/uL (0.2-0.8); MONOCYTES % (AUTO) 1 % (2-9); NEUTROPHILS # (AUTO) 15.13 x10^3/uL (1.8-6.8); NEUTROPHILS % (AUTO) 96 % (42-75)
[2017-07-12] MEDS: PANTOPRAZOLE 40 MG IV IVPush SCH (08:27)
[2017-07-12] MEDS: MICAFUNGIN 100 MG in SODIUM CHLORIDE 0.9% 100 ML IV SCH (08:28)
[2017-07-12] MEDS: BISACODYL 10 MG SUPP PR SCH (08:28)
[2017-07-12] MEDS: TAMSULOSIN 0.4 MG CAP.ER.24H PO SCH (08:28)
[2017-07-12] MEDS ORDERED: POTASSIUM CHLORIDE 10% 40 MEQ/30 ML UDC NG ONE (08:30)
[2017-07-12] MEDS ORDERED: BISACODYL 10 MG SUPP PR SCH (09:00)
[2017-07-12] MEDS: MEROPENEM 1 GM in SODIUM CHLORIDE 0.9% 100 ML IV SCH ×2 (11:24→23:07)
[2017-07-13] MEDS: METOCLOPRAMIDE 5 MG/ML, 2ML IV SCH ×4 (01:15→18:43)
[2017-07-13] MEDS: FUROSEMIDE 20 MG/2 ML IV SCH ×3 (01:15→17:37)
[2017-07-13] MEDS: FENTANYL PF 100 MCG/2ML IVPush PRN ×6 (02:21→21:52)
[2017-07-13 04:31] LABS: MEAN CORPUSCULAR VOLUME 91.1 fL (81-97); MEAN PLATELET VOLUME 8.8 fL (7.4-10.4); PLATELET COUNT 376 x10^3/uL (130-400); RED BLOOD COUNT 2.96 x10^6/uL (4.38-5.82)
[2017-07-13 04:46] LABS: BASOPHILS % (AUTO) 0 % (0-1); EOSINOPHILS # (AUTO) 0.04 x10^3/uL (0-0.4); EOSINOPHILS % (AUTO) 0 % (1-7); LYMPHOCYTES % (AUTO) 3 % (22-44); MD SCAN; MONOCYTES # (AUTO) 0.17 x10^3/uL (0.2-0.8); MONOCYTES % (AUTO) 1 % (2-9); NEUTROPHILS # (AUTO) 15.28 x10^3/uL (1.8-6.8); NEUTROPHILS % (AUTO) 96 % (42-75)
[2017-07-13 04:47] LABS: ANION GAP 5 mmol/L (5-15); CALCIUM 7.5 mg/dL (8.5-10.1); CHLORIDE 110 mmol/L (98-107); TRIGLYCERIDES 129 mg/dL (50-200)
[2017-07-13 04:54] LABS: CREATININE 0.79 mg/dL (0.7-1.3)
[2017-07-13] MEDS: HEPARIN 5,000 UNITS/ML, 1ML SQ SCH ×3 (05:13→20:41)
[2017-07-13] MEDS: MICAFUNGIN 100 MG in SODIUM CHLORIDE 0.9% 100 ML IV SCH (08:02)
[2017-07-13] MEDS ORDERED: GOLYTELY 4,000ML ORAL.SOL PO ONE (09:00)
[2017-07-13] MEDS: TAMSULOSIN 0.4 MG CAP.ER.24H PO SCH (09:00)
[2017-07-13] MEDS: BISACODYL 10 MG SUPP PR SCH (09:51)
[2017-07-13] MEDS: PANTOPRAZOLE 40 MG IV IVPush SCH (09:51)
[2017-07-13] MEDS: MEROPENEM 1 GM in SODIUM CHLORIDE 0.9% 100 ML IV SCH ×2 (11:16→23:20)
[2017-07-13] MEDS: ACETAMINOPHEN 325 MG TABLET PO PRN ×2 (12:46→21:47)
[2017-07-14] MEDS: METOCLOPRAMIDE 5 MG/ML, 2ML IV SCH ×4 (00:52→20:28)
[2017-07-14] MEDS: FENTANYL PF 100 MCG/2ML IVPush PRN ×4 (00:52→15:56)
[2017-07-14] MEDS: FUROSEMIDE 20 MG/2 ML IV SCH ×3 (00:52→17:56)
[2017-07-14 04:47] LABS: BASOPHILS % (AUTO) 0 % (0-1); EOSINOPHILS # (AUTO) 0.06 x10^3/uL (0-0.4); EOSINOPHILS % (AUTO) 1 % (1-7); LYMPHOCYTES # (AUTO) 0.53 x10^3/uL (1-3.4); LYMPHOCYTES % (AUTO) 4 % (22-44); MD NO; MEAN CORPUSCULAR HEMOGLOBIN 29.9 pg (27.5-34.5); MEAN CORPUSCULAR HGB CONC 32.9 g/dL (33.2-36.2); MEAN PLATELET VOLUME 8.7 fL (7.4-10.4); MONOCYTES # (AUTO) 0.21 x10^3/uL (0.2-0.8); MONOCYTES % (AUTO) 2 % (2-9); NEUTROPHILS # (AUTO) 11.94 x10^3/uL (1.8-6.8); NEUTROPHILS % (AUTO) 94 % (42-75); PLATELET COUNT 357 x10^3/uL (130-400); RED BLOOD COUNT 2.73 x10^6/uL (4.38-5.82)
[2017-07-14] MEDS: HEPARIN 5,000 UNITS/ML, 1ML SQ SCH ×3 (04:49→20:28)
[2017-07-14 05:00] LABS: ANION GAP 5 mmol/L (5-15); CALCIUM 7.4 mg/dL (8.5-10.1); CHLORIDE 105 mmol/L (98-107); CREATININE 0.78 mg/dL (0.7-1.3)
[2017-07-14] MEDS: PANTOPRAZOLE 40 MG IV IVPush SCH (09:19)
[2017-07-14] MEDS: TAMSULOSIN 0.4 MG CAP.ER.24H PO SCH (09:19)
[2017-07-14] MEDS: BISACODYL 10 MG SUPP PR SCH (09:19)
[2017-07-14] MEDS: MICAFUNGIN 100 MG in SODIUM CHLORIDE 0.9% 100 ML IV SCH (09:20)
[2017-07-14] MEDS: MEROPENEM 1 GM in SODIUM CHLORIDE 0.9% 100 ML IV SCH ×2 (11:30→23:28)
[2017-07-14] MEDS: ACETAMINOPHEN 650 MG SUPP PR PRN ×2 (12:26→17:57)
[2017-07-14] MEDS ORDERED: MIDAZOLAM 1 MG/ML, 2ML IVPush PRN (17:30)
[2017-07-14] MEDS ORDERED: METHYLNALTREXONE 12 MG/0.6 ML SQ ONE (17:30)
[2017-07-14] MEDS ORDERED: GOLYTELY 4,000ML ORAL.SOL PO SCH (18:30)
[2017-07-14] MEDS: ACETAMINOPHEN 325 MG TABLET PO PRN (22:17)
[2017-07-15] MEDS: METOCLOPRAMIDE 5 MG/ML, 2ML IV SCH ×4 (02:11→21:00)
[2017-07-15] MEDS: HEPARIN 5,000 UNITS/ML, 1ML SQ SCH ×3 (02:11→20:00)
[2017-07-15] MEDS: FUROSEMIDE 20 MG/2 ML IV SCH ×3 (02:11→16:13)
[2017-07-15 04:39] LABS: BASOPHILS # (AUTO) 0.01 x10^3/uL (0-0.1); BASOPHILS % (AUTO) 0 % (0-1); EOSINOPHILS # (AUTO) 0.03 x10^3/uL (0-0.4); EOSINOPHILS % (AUTO) 0 % (1-7); LYMPHOCYTES # (AUTO) 0.59 x10^3/uL (1-3.4); LYMPHOCYTES % (AUTO) 5 % (22-44); MD NO; MEAN CORPUSCULAR HEMOGLOBIN 29.6 pg (27.5-34.5); MEAN CORPUSCULAR HGB CONC 33.1 g/dL (33.2-36.2); MEAN CORPUSCULAR VOLUME 89.4 fL (81-97); MEAN PLATELET VOLUME 8.8 fL (7.4-10.4); MONOCYTES # (AUTO) 0.24 x10^3/uL (0.2-0.8); MONOCYTES % (AUTO) 2 % (2-9); NEUTROPHILS # (AUTO) 11.24 x10^3/uL (1.8-6.8); NEUTROPHILS % (AUTO) 93 % (42-75); PLATELET COUNT 288 x10^3/uL (130-400); RED BLOOD COUNT 2.76 x10^6/uL (4.38-5.82); RED CELL DISTRIBUTION WIDTH 15.7 % (9.4-14.8)
[2017-07-15 04:54] LABS: CHLORIDE 105 mmol/L (98-107)
[2017-07-15 04:59] LABS: ANION GAP 7 mmol/L (5-15); CALCIUM 7.4 mg/dL (8.5-10.1); CREATININE 0.73 mg/dL (0.7-1.3)
[2017-07-15] MEDS: MICAFUNGIN 100 MG in SODIUM CHLORIDE 0.9% 100 ML IV SCH (08:04)
[2017-07-15] MEDS: TAMSULOSIN 0.4 MG CAP.ER.24H PO SCH (08:19)
[2017-07-15] MEDS: PANTOPRAZOLE 40 MG IV IVPush SCH (08:19)
[2017-07-15] MEDS: BISACODYL 10 MG SUPP PR SCH (08:19)
[2017-07-15] MEDS: MEROPENEM 1 GM in SODIUM CHLORIDE 0.9% 100 ML IV SCH (11:29)
[2017-07-15] MEDS ORDERED: ALBUTEROL/IPRATROPIUM 2.5MG/0.5MG, 3 ML NPPB PRN (12:30)
[2017-07-15] MEDS: POTASSIUM CHLORIDE 10% 20 MEQ/15 ML UDC PO SCH ×2 (14:00→21:00)
[2017-07-15] MEDS: ALBUTEROL/IPRATROPIUM 2.5MG/0.5MG, 3 ML NPPB SCH ×2 (14:01→19:00)
[2017-07-15] MEDS: ACETAMINOPHEN 325 MG TABLET PO PRN (16:12)
[2017-07-16] MEDS: MEROPENEM 1 GM in SODIUM CHLORIDE 0.9% 100 ML IV SCH ×3 (00:22→23:12)
[2017-07-16] MEDS: FUROSEMIDE 20 MG/2 ML IV SCH ×2 (01:23→10:11)
[2017-07-16 04:32] LABS: MEAN CORPUSCULAR HEMOGLOBIN 29.2 pg (27.5-34.5); MEAN CORPUSCULAR HGB CONC 32.5 g/dL (33.2-36.2); MEAN PLATELET VOLUME 8.5 fL (7.4-10.4); PLATELET COUNT 463 x10^3/uL (130-400); RED BLOOD COUNT 2.75 x10^6/uL (4.38-5.82); RED CELL DISTRIBUTION WIDTH 15.1 % (9.4-14.8)
[2017-07-16 04:36] LABS: ANION GAP 6 mmol/L (5-15); CALCIUM 7.4 mg/dL (8.5-10.1); CHLORIDE 105 mmol/L (98-107); CREATININE 0.75 mg/dL (0.7-1.3); TRIGLYCERIDES 124 mg/dL (50-200)
[2017-07-16 04:53] LABS: BASOPHILS # (AUTO) 0.05 x10^3/uL (0-0.1); BASOPHILS % (AUTO) 1 % (0-1); EOSINOPHILS # (AUTO) 0.04 x10^3/uL (0-0.4); EOSINOPHILS % (AUTO) 0 % (1-7); LYMPHOCYTES # (AUTO) 0.49 x10^3/uL (1-3.4); LYMPHOCYTES % (AUTO) 6 % (22-44); MD SCAN; MONOCYTES # (AUTO) 0.18 x10^3/uL (0.2-0.8); MONOCYTES % (AUTO) 2 % (2-9); NEUTROPHILS % (AUTO) 91 % (42-75)
[2017-07-16] MEDS: METOCLOPRAMIDE 5 MG/ML, 2ML IV SCH ×4 (04:58→20:30)
[2017-07-16] MEDS: HEPARIN 5,000 UNITS/ML, 1ML SQ SCH ×3 (04:59→20:29)
[2017-07-16] MEDS: ALBUTEROL/IPRATROPIUM 2.5MG/0.5MG, 3 ML NPPB SCH ×4 (07:00→20:00)
[2017-07-16] MEDS ORDERED: POTASSIUM CHLORIDE 10% 40 MEQ/30 ML UDC PO SCH (09:00)
[2017-07-16] MEDS ORDERED: POTASSIUM CHLORIDE IV ONE (09:00)
[2017-07-16] MEDS ORDERED: SODIUM CHLORIDE 0.9% IV ONE (09:00)
[2017-07-16] MEDS: BISACODYL 10 MG SUPP PR SCH (09:00)
[2017-07-16] MEDS: TAMSULOSIN 0.4 MG CAP.ER.24H PO SCH (09:00)
[2017-07-16] MEDS ORDERED: POTASSIUM CHLORIDE 40 MEQ in SODIUM CHLORIDE 0.9% 500 ML IV ONE (09:30)
[2017-07-16] MEDS: MICAFUNGIN 100 MG in SODIUM CHLORIDE 0.9% 100 ML IV SCH (10:11)
[2017-07-16] MEDS: PANTOPRAZOLE 40 MG IV IVPush SCH (10:12)
[2017-07-16] MEDS ORDERED: LIDOCAINE 1%, 20ML ONE (13:38)
[2017-07-16] MEDS ORDERED: VISIPAQUE 270 MG/ML, 50ML BOTTLE ONE (15:03)
[2017-07-17] MEDS: METOCLOPRAMIDE 5 MG/ML, 2ML IV SCH ×4 (03:28→20:45)
[2017-07-17] MEDS: HEPARIN 5,000 UNITS/ML, 1ML SQ SCH ×3 (03:29→20:45)
[2017-07-17 05:08] LABS: CALCIUM 7.7 mg/dL (8.5-10.1); CHLORIDE 107 mmol/L (98-107)
[2017-07-17 05:10] LABS: BASOPHILS # (AUTO) 0.01 x10^3/uL (0-0.1); BASOPHILS % (AUTO) 0 % (0-1); EOSINOPHILS # (AUTO) 0.02 x10^3/uL (0-0.4); EOSINOPHILS % (AUTO) 0 % (1-7); LYMPHOCYTES # (AUTO) 0.47 x10^3/uL (1-3.4); LYMPHOCYTES % (AUTO) 7 % (22-44); MD NO; MEAN CORPUSCULAR HEMOGLOBIN 29.5 pg (27.5-34.5); MEAN CORPUSCULAR HGB CONC 32.6 g/dL (33.2-36.2); MEAN CORPUSCULAR VOLUME 90.5 fL (81-97); MEAN PLATELET VOLUME 8.2 fL (7.4-10.4); MONOCYTES # (AUTO) 0.28 x10^3/uL (0.2-0.8); MONOCYTES % (AUTO) 4 % (2-9); NEUTROPHILS # (AUTO) 6.06 x10^3/uL (1.8-6.8); NEUTROPHILS % (AUTO) 89 % (42-75); PLATELET COUNT 489 x10^3/uL (130-400); RED CELL DISTRIBUTION WIDTH 15.4 % (9.4-14.8)
[2017-07-17 05:11] LABS: ANION GAP 6 mmol/L (5-15)
[2017-07-17] MEDS: ALBUTEROL/IPRATROPIUM 2.5MG/0.5MG, 3 ML NPPB SCH ×4 (06:52→20:30)
[2017-07-17] MEDS: TAMSULOSIN 0.4 MG CAP.ER.24H PO SCH (08:02)
[2017-07-17] MEDS: POTASSIUM CHLORIDE 10% 40 MEQ/30 ML UDC PO SCH ×2 (08:44→21:12)
[2017-07-17] MEDS: FUROSEMIDE 20 MG/2 ML IV SCH (08:44)
[2017-07-17] MEDS: MICAFUNGIN 100 MG in SODIUM CHLORIDE 0.9% 100 ML IV SCH (08:44)
[2017-07-17] MEDS: PANTOPRAZOLE 40 MG IV IVPush SCH (08:44)
[2017-07-17] MEDS: BISACODYL 10 MG SUPP PR SCH (08:45)
[2017-07-17] MEDS: MEROPENEM 1 GM in SODIUM CHLORIDE 0.9% 100 ML IV SCH ×2 (10:52→23:13)
[2017-07-17] MEDS ORDERED: ALBU2.5V NEB (17:02)
[2017-07-17] MEDS ORDERED: BISA10SU2 PR (17:03)
[2017-07-17] MEDS ORDERED: FURO-93 PO (17:04)
[2017-07-17] MEDS ORDERED: HEPA1000 SQ (17:07)
[2017-07-17] MEDS ORDERED: MERO1PIG IVPB (17:11)
[2017-07-17] MEDS ORDERED: [UNRECOGNIZED DRUG - CODE] IV (17:13)
[2017-07-17] MEDS ORDERED: FURO10SO IV (17:15)
[2017-07-17] MEDS ORDERED: MICA100V3 IV (17:17)
[2017-07-17] MEDS ORDERED: ONDA4TAB10 PO (17:18)
[2017-07-17] MEDS ORDERED: PANT40VI IV (17:19)
[2017-07-17] MEDS ORDERED: POTA10TA11 PO (17:21)
[2017-07-17] MEDS ORDERED: ACET325C PO (17:23)
[2017-07-17] MEDS ORDERED: ACET-1770 PR (17:26)
[2017-07-17 18:58] VITALS: BP 143/75
[2017-07-17] MEDS ORDERED: POTASSIUM CHLORIDE 20 MEQ TAB.ER.PRT ONE (21:01)
[2017-07-17] MEDS ORDERED: POTASSIUM CHLORIDE 20 MEQ PACKET ONE (21:03)
[2017-07-18 00:34] VITALS: BP 147/71
[2017-07-18] MEDS: METOCLOPRAMIDE 5 MG/ML, 2ML IV SCH ×2 (03:40→09:15)
[2017-07-18] MEDS: HEPARIN 5,000 UNITS/ML, 1ML SQ SCH (03:40)
[2017-07-18 05:46] LABS: ANION GAP 4 mmol/L (5-15); CALCIUM 7.7 mg/dL (8.5-10.1); CHLORIDE 112 mmol/L (98-107); CREATININE 0.68 mg/dL (0.7-1.3)
[2017-07-18 06:30] LABS: BASOPHILS # (AUTO) 0.01 x10^3/uL (0-0.1); BASOPHILS % (AUTO) 0 % (0-1); EOSINOPHILS # (AUTO) 0.04 x10^3/uL (0-0.4); EOSINOPHILS % (AUTO) 1 % (1-7); LYMPHOCYTES # (AUTO) 0.51 x10^3/uL (1-3.4); LYMPHOCYTES % (AUTO) 8 % (22-44); MD NO; MEAN CORPUSCULAR HEMOGLOBIN 30.5 pg (27.5-34.5); MEAN CORPUSCULAR HGB CONC 32.9 g/dL (33.2-36.2); MEAN CORPUSCULAR VOLUME 92.8 fL (81-97); MONOCYTES % (AUTO) 5 % (2-9); NEUTROPHILS # (AUTO) 5.45 x10^3/uL (1.8-6.8); NEUTROPHILS % (AUTO) 86 % (42-75); PLATELET COUNT 522 x10^3/uL (130-400); RED BLOOD COUNT 2.61 x10^6/uL (4.38-5.82); RED CELL DISTRIBUTION WIDTH 15.6 % (9.4-14.8)
[2017-07-18] MEDS: ALBUTEROL/IPRATROPIUM 2.5MG/0.5MG, 3 ML NPPB SCH ×2 (07:00→10:50)
[2017-07-18 07:22] VITALS: BP 161/76
[2017-07-18] MEDS: TAMSULOSIN 0.4 MG CAP.ER.24H PO SCH (08:18)
[2017-07-18] MEDS: PANTOPRAZOLE 40 MG IV IVPush SCH (09:14)
[2017-07-18] MEDS: MICAFUNGIN 100 MG in SODIUM CHLORIDE 0.9% 100 ML IV SCH (09:14)
[2017-07-18] MEDS: BISACODYL 10 MG SUPP PR SCH (09:14)
[2017-07-18] MEDS: FUROSEMIDE 20 MG/2 ML IV SCH (09:15)
[2017-07-18 11:46] VITALS: BP 138/72
== END 2017-07-18 11:52 | DRG 326 ==
LOC: ORIP 10:48 → 4NOR 17:39 → CCU 07-05 00:34 → 4NOR 07-17 14:02
PROVIDERS: ADMIT Surgery; ATTEND Surgery
PROC: 8E0W4CZ Robotic Assisted Procedure of Trunk Region, Percutaneous Endoscopic Approach (ICD-10-PCS; 2017-07-01)
PROC: 0BQT4ZZ Repair Diaphragm, Percutaneous Endoscopic Approach (ICD-10-PCS; 2017-07-01)
PROC: 0DV44ZZ Restriction of Esophagogastric Junction, Percutaneous Endoscopic Approach (ICD-10-PCS; 2017-07-01)
PROC: 0DNE4ZZ Release Large Intestine, Percutaneous Endoscopic Approach (ICD-10-PCS; 2017-07-01)
PROC: 0DH60UZ Insertion of Feeding Device into Stomach, Open Approach (ICD-10-PCS; 2017-07-04)
PROC: 0WJP4ZZ Inspection of Gastrointestinal Tract, Percutaneous Endoscopic Approach (ICD-10-PCS; 2017-07-04)
PROC: 0DQ40ZZ Repair Esophagogastric Junction, Open Approach (ICD-10-PCS; principal; 2017-07-04 21:00)
PROC: 0DP6XUZ Removal of Feeding Device from Stomach, External Approach (ICD-10-PCS; 2017-07-05)
PROC: 02HV33Z Insertion of Infusion Device into Superior Vena Cava, Percutaneous Approach (ICD-10-PCS; 2017-07-05)
PROC: 0DH63UZ Insertion of Feeding Device into Stomach, Percutaneous Approach (ICD-10-PCS; 2017-07-05)
DX: K91.89 Other postprocedural complications and disorders of digestive system (principal); A41.9 Sepsis, unspecified organism; J96.20 Acute and chronic respiratory failure, unspecified whether with hypoxia or hypercapnia; J69.0 Pneumonitis due to inhalation of food and vomit; N17.0 Acute kidney failure with tubular necrosis; R57.9 Shock, unspecified; K22.3 Perforation of esophagus; B49 Unspecified mycosis; D62 Acute posthemorrhagic anemia; K56.7 Ileus, unspecified; Z99.11 Dependence on respirator [ventilator] status; I48.91 Unspecified atrial fibrillation; K44.9 Diaphragmatic hernia without obstruction or gangrene; K21.9 Gastro-esophageal reflux disease without esophagitis; I10 Essential (primary) hypertension; N40.0 Benign prostatic hyperplasia without lower urinary tract symptoms; Z51.5 Encounter for palliative care; K43.2 Incisional hernia without obstruction or gangrene; Y83.8 Other surgical procedures as the cause of abnormal reaction of the patient, or of later complication, without mention of misadventure at the time of the procedure; K22.8 Other specified diseases of esophagus; E87.6 Hypokalemia; J44.9 Chronic obstructive pulmonary disease, unspecified; K94.29 Other complications of gastrostomy; K66.0 Peritoneal adhesions (postprocedural) (postinfection)
CPT/HCPCS: 36415; 36600; 49450; 71045; 74018; 74220; 75984; 80048; 80053; 82533; 82803; 83735; 84478; 84484; 85014; 85018; 85025; 86850; 86900; 86923; 87040; 87070; 87081; 87106; 87147; 87186; 87205; 93005; 93970; 94002; 94003; 94150; 94640; C1729; J0171; J0690; J1100; J1170; J1644; J2185; J2248; J2250; J2405; J2543; J2704; J2710; J3010; J3480; J3490; J7620; Q0162; Q9966; Q9967; C1750; C1769; C8924; C9113; J0282; J0330; J1450; J1940; J2370; J2765; J7030; J7040; J7050; J7060; J7120; P9016; S0028; S0074